=== PATIENT | male | born 1955 | race Two or more races ===

== ENCOUNTER 2019-03-16 05:15 | Day surgery (SDC) | payer OTHER ==
[~2019-03-16 05:15] MED LIST: ALLOPURINOL300 MG; ALLOPURINOL300 MG PO; BUMETANIDE1 MG PO; CARVEDILOL3.125 MG; COZAAR25 MG PO; ELIQUIS5 MG PO; ENALAPRIL MALEAT5 MG; FUROSEMIDE20 MG; LASIX40 MG PO; VOLTAREN100 GM; XARELTO10 MG
[2019-03-16] MEDS ORDERED: KEFLEX500 MG PO (09:43)
[2019-03-16] MEDS ORDERED: ULTRACET PO (09:43)
== END 2019-03-16 12:40 | disposition home or self-care (01) ==
LOC: CIR.AMB 05:15
DX: K42.0 Umbilical hernia with obstruction, without gangrene (principal)

== ENCOUNTER 2019-04-08 13:22 | Inpatient (IN) | payer OTHER ==
[~2019-04-08] VITALS: Ht 175.3 cm; Wt 113.4 kg
[~2019-04-08 13:22] MED LIST changes: +KEFLEX500 MG PO; +ULTRACET PO
[2019-04-12] MEDS ORDERED: ISOSORBIDE DINIT5 MG PO (12:08)
[2019-04-12] MEDS ORDERED: LOSARTAN POTASS25 MG PO (12:08)
[2019-04-12] MEDS ORDERED: CARVEDILOL6.25 MG PO (12:08)
[2019-04-12] MEDS ORDERED: ELIQUIS5 MG PO (12:08)
[2019-04-12] MEDS ORDERED: LASIX20 MG PO (12:09)
[2019-04-12] MEDS ORDERED: ZYLOPRIM300 MG PO (12:09)
[2019-04-12] MEDS ORDERED: SPIRONOLACTONE25 MG PO (12:09)
== END 2019-04-12 14:31 | disposition home or self-care (01) | DRG 293 ==
LOC: ER 13:22 → ICU-2 18:23 → SEC-K 04-10 13:19 → SURG 04-10 13:48
PROVIDERS: ADMIT Specialist
PROC: B246ZZZ Ultrasonography of Right and Left Heart (ICD-10-PCS; principal; 2019-04-08)
PROC: 4A12X4Z Monitoring of Cardiac Electrical Activity, External Approach (ICD-10-PCS; 2019-04-10)
DX: I11.0 Hypertensive heart disease with heart failure (principal); I50.43 Acute on chronic combined systolic (congestive) and diastolic (congestive) heart failure; I48.0 Paroxysmal atrial fibrillation; Z95.810 Presence of automatic (implantable) cardiac defibrillator

== ENCOUNTER 2020-11-29 10:51 | Emergency (ER) | payer OTHER ==
[~2020-11-29] VITALS: Ht 175.3 cm; Wt 90.3 kg
[~2020-11-29 10:51] MED LIST changes: +CARVEDILOL6.25 MG PO; +ISOSORBIDE DINIT5 MG PO; +LASIX20 MG PO; +LOSARTAN POTASS25 MG PO; +SPIRONOLACTONE25 MG PO; +ZYLOPRIM300 MG PO
[2020-11-29] MEDS ORDERED: CARVEDILOL12.5 MG (11:03)
[2020-11-29] MEDS ORDERED: DIGOXIN125 MCG PO (11:04)
[2020-11-29] MEDS ORDERED: INTESTINEX680 M1 PO (12:26)
[2020-11-29] MEDS ORDERED: AMOX-CLAV 875-1 EAC1 PO (12:26)
== END 2020-11-29 12:55 | disposition home or self-care (01) ==
LOC: ER 10:51
DX: S81.851A Open bite, right lower leg, initial encounter (principal); W54.0XXA Bitten by dog, initial encounter; Y93.89 Activity, other specified; Y92.89 Other specified places as the place of occurrence of the external cause; Y99.8 Other external cause status

== ENCOUNTER 2021-03-13 10:48 | Emergency (ER) | payer OTHER ==
[~2021-03-13] VITALS: Ht 175.3 cm; Wt 90.7 kg
[~2021-03-13 10:48] MED LIST changes: +AMOX-CLAV 875-1 EAC1 PO; +CARVEDILOL12.5 MG; +DIGOXIN125 MCG PO; +INTESTINEX680 M1 PO
[2021-03-13] MEDS ORDERED: LEVSIN0.125 MG PO (18:21)
== END 2021-03-13 20:02 | disposition home or self-care (01) ==
LOC: ER 10:48
DX: K40.90 Unilateral inguinal hernia, without obstruction or gangrene, not specified as recurrent (principal); N50.812 Left testicular pain

== ENCOUNTER 2021-04-10 06:08 | Day surgery (SDC) | payer OTHER ==
[~2021-04-10 06:08] MED LIST changes: +LEVSIN0.125 MG PO
[2021-04-10] MEDS ORDERED: SURFAK240 M1 PO (12:34)
[2021-04-10] MEDS ORDERED: ULTRACET PO (12:34)
[2021-04-10] MEDS ORDERED: LOVENOX30 MG/0.3 SUBCUTANEO (12:34)
== END 2021-04-10 16:35 | disposition home or self-care (01) ==
LOC: CIR.AMB 06:08
PROVIDERS: ATTEND Surgery
DX: K40.90 Unilateral inguinal hernia, without obstruction or gangrene, not specified as recurrent (principal); Z20.822 Contact with and (suspected) exposure to COVID-19

== ENCOUNTER 2024-04-26 17:28 | Emergency (ER) | payer OTHER ==
[~2024-04-26] VITALS: Ht 175.3 cm; Wt 99.8 kg
[~2024-04-26 17:28] MED LIST changes: +LOVENOX30 MG/0.3 SUBCUTANEO; +SURFAK240 M1 PO
[2024-04-26] MEDS ORDERED: FARXIGA10 MG PO (18:09)
[2024-04-26 20:42] LABS: HEMATOCRIT 39.2 % (39.0-48.0); MEAN CELL VOLUME 102.7 fL (80.0-100.00); MEAN CORPUSCULAR HGB CONC 33.1 g/dl (32.0-36.0); PLATELET COUNT 164 K/uL (150-450); RED BLOOD COUNT 3.82 M/uL (4.00-6.00); RED CELL DISTRIBUTION WIDTH 16.5 % (11.5-14.5)
[2024-04-26 23:31] LABS: ALBUMIN 3.8 gm/dL (3.4-5.0); BILIRUBIN TOTAL 1.4 mg/dL (0.3-1.2); CALCIUM 9.7 mg/dL (8.5-10.1); CREATININE SERUM 1.84 mg/dL (0.70-1.30); GFR 36.76; GLOBULINA 3.3 G/DL (2.4-3.5); POTASSIUM 5.41 mEq/L (3.5-5.1); TOTAL PROTEIN 7.1 gm/dL (6.4-8.2)
[2024-04-26 23:54] LABS: BILIRUBIN,CONJUGATED 0.54 mg/dL (0.0-0.2); BILIRUBIN,UNCONJUGATED 0.86 mg/dL (0.0-0.6)
== END 2024-04-27 02:25 | disposition home or self-care (01) ==
LOC: ER 17:30
PROVIDERS: Emergency Medicine; Preventive Medicine Public Health & General Preventive Medicine
DX: R53.81 Other malaise (principal); K21.9 Gastro-esophageal reflux disease without esophagitis; I10 Essential (primary) hypertension

== ENCOUNTER 2024-09-05 11:28 | Inpatient (IN) | payer OTHER ==
[~2024-09-05] VITALS: Ht 175.3 cm; Wt 113.4 kg
[~2024-09-05 11:28] MED LIST changes: +FARXIGA10 MG PO
--- NOTE | 2024-09-05 11:41 | NUR ---
SE RECIBE PACIENTE ALERTA Y ORIENTADO X3 REFIERE VENIR POR REFERIDO DE [facility]. PACIENTE CON HX DE RENAL DISSEASE, CHF
--- NOTE | 2024-09-05 11:44 | NUR ---
AL DARRYL LOS SIGNOS VITALES, PTE CON RESULTADO DE HIPOTENSION. SE DUARTE DE MANERA MANUAL 80/60MM/HG. SE NOTIFICA A Y SE UBICA A PACIENTE.
--- NOTE | 2024-09-05 12:06 | NUR ---
SE UBICA A PACIENET EN CAMA K6, SE CONECTA A TELEMETRIA. SE RE ESTIMAN PRESION ARTERIAL LA MISMA EN
--- NOTE | 2024-09-05 14:13 | NUR ---
SE ORIENTA A PTE SOBRE TX MEDICO Y EL MISMO REFIERE ENTENDER. SE CANALIZA A PTE EN BRAZO DERECHO CON ANGIO #20 Y SE RECOLECTAN MUESTRAS DE LA [place] ORDEN MEDICA BAJO MEDIDAS ASEPTICAS.
[2024-09-05 14:21] LABS: HEMATOCRIT 34.5 % (39.0-48.0); HEMOGLOBIN 11.4 g/dL (13-16.00); MEAN CORPUSCULAR HEMOGLOBIN 32.8 pg (27.00-32.0); MEAN CORPUSCULAR HGB CONC 33.1 g/dl (32.0-36.0); RED BLOOD COUNT 3.49 M/uL (4.00-6.00); RED CELL DISTRIBUTION WIDTH 17.4 % (11.5-14.5)
[2024-09-05 14:23] LABS: PLATELET COUNT 127 K/uL (150-450)
[2024-09-05 14:41] LABS: INR 1.24; PARTIAL THROMBOPLASTIN TIME 28.9 SECONDS (22.0-34.0); PROTHROMBIN TIME 13.3 SECONDS (9.0-11.5)
[2024-09-05 14:44] LABS: BILIRUBIN TOTAL 1.77 mg/dL (0.3-1.2); BILIRUBIN,CONJUGATED 0.91 mg/dL (0.0-0.2); BILIRUBIN,UNCONJUGATED 0.86 mg/dL (0.0-0.6); CREATININE SERUM 1.65 mg/dL (0.70-1.30); GFR 41.69; GLOBULINA 3.5 G/DL (2.4-3.5); POTASSIUM 4.09 mEq/L (3.5-5.1); TOTAL PROTEIN 6.5 gm/dL (6.4-8.2)
[2024-09-05 15:00] LABS: ABG PH 7.415 (7.35-7.45); ABG PO2 67.2 mmHg (80-100); ABG pCO2 54.8 mmHg (35-45); SaO2 93.8 %
[2024-09-05 15:01] LABS: BASE EXCESS 7.9 mmol/l; BICARBONATE 34.4 mmol/l (23-25); Tco2 36.1 mmol/l; allen test SATISFACTORY; o2 21 %; puncture site RADIAL RIGHT
[2024-09-05 16:47] LABS: PH,URINE 5.5 (5.0-8.0); URINE APPEARANCE Clear; URINE BILIRRUBIN Negative (NEGATIVE); URINE BLOOD Negative; URINE COLOR Dark Yellow; URINE KETONE Negative (NEGATIVE); URINE LEUKOCYTE Small; URINE NITRATE Negative; URINE PROTEIN Trace (NEGATIVE)
[2024-09-05 16:51] LABS: URINE BACTERIA 1064.8 uL (0.0-1933); URINE EPITHELIAL CELLS 7.7 uL (0.0-38.8); URINE WBC 14.4 uL (0.0-23.2)
[2024-09-05 17:08] LABS: URINE GLUCOSE 100 MG/DL (NEGATIVE); URINE RBC 1.7 uL (0.0-20.8)
[2024-09-05] MEDS ORDERED: RINGERS SOLUTION,LACTATED 1,000 ML IV ONE (18:30)
[2024-09-05] MEDS ORDERED: IPRATROPIUM BROMIDE 0.5 MG/2.5 ML AMPUL.NEB IH SCH (19:07)
[2024-09-05] MEDS ORDERED: FUROsemide 20 MG/2 ML VIAL IV SCH (19:14)
[2024-09-05] MEDS ORDERED: OxyCODONE HCL/APAP UD (PERCOCET) PO ONE (19:15)
[2024-09-05] MEDS ORDERED: ACETAMINOPHEN 500 MG GEL..CAP PO PRN (19:15)
[2024-09-05] MEDS ORDERED: METOLAZONE 5 MG TABLET PO SCH (20:23)
[2024-09-05] MEDS ORDERED: AMINO ACIDS/PROTEIN HYDROLYS 30 ML BLIST.PACK PO SCH (20:29)
[2024-09-05 20:38] VITALS: BP 101/65; O2SAT 96
[2024-09-05 23:14] VITALS: BP 98/74; O2SAT 100
[2024-09-06] VITALS (13 sets, daily range): BP systolic 84–102; BP diastolic 51–77; O2SAT 95–100
[2024-09-06] MEDS ORDERED: APIXABAN 5 MG TABLET PO SCH (05:00)
[2024-09-06 07:08] LABS: INR 1.18; PARTIAL THROMBOPLASTIN TIME 26.8 SECONDS (22.0-34.0); PROTHROMBIN TIME 12.7 SECONDS (9.0-11.5)
[2024-09-06] MEDS ORDERED: ATORVASTATIN CALCIUM 20 MG TABLET PO SCH (09:00)
[2024-09-06] MEDS ORDERED: FAMOTIDINE/PF 20 MG in 0.9 % SODIUM CHLORIDE 8 ML IV PUSH SCH (09:00)
[2024-09-06] MEDS ORDERED: ALLOPURINOL 300 MG TABLET PO SCH (09:00)
[2024-09-06 10:03] LABS: CALCIUM 8.6 mg/dL (8.5-10.1); CREATININE SERUM 1.54 mg/dL (0.70-1.30); GFR 45.15; PHOSPHOROUS 4.7 mg/dL (2.5-4.9); POTASSIUM 3.73 mEq/L (3.5-5.1)
[2024-09-06] MEDS ORDERED: MIDODRINE HCL 5 MG TABLET PO SCH (17:00)
[2024-09-06] MEDS ORDERED: SPIRONOLACTONE 25 MG TABLET PO SCH (17:15)
[2024-09-06] MEDS ORDERED: AMINO ACIDS 1 EACH TABLET PO SCH (19:14)
[2024-09-06] MEDS ORDERED: IRON FUM,PS/FOLIC/BCOMP,C NO.9 1 CAP CAPSULE PO SCH (19:15)
[2024-09-06] MEDS ORDERED: ALBUMIN HUMAN-25 0.25GM/ML (50ML) VIAL IV SCH (19:34)
[2024-09-06] MEDS ORDERED: FUROsemide 20 MG/2 ML VIAL IV SCH (21:00)
[2024-09-07] VITALS: BP 101/64; O2SAT 100
[2024-09-07 04:11] VITALS: BP 95/71; O2SAT 96
[2024-09-07 07:11] VITALS: BP 99/73; O2SAT 95
[2024-09-07 08:24] LABS: URINE PROT QUANT 24HR 15.9 MG/DL
[2024-09-07 08:25] LABS: URINE PROT QUANT 24 HR 461.1 MG/24HR (42-225)
[2024-09-07 08:28] LABS: CREATINE CLEARANCE 38.1 ML/MIN (97-137); CREATININE SERUM 1.42 mg/dL (0.8-1.3)
[2024-09-07] MEDS ORDERED: MIDODRINE HCL 5 MG TABLET PO SCH (09:00)
[2024-09-07] MEDS ORDERED: PANTOPRAZOLE SODIUM 40 MG TABLET.DR PO SCH (09:00)
[2024-09-07] MEDS ORDERED: ALLOPURINOL 100 MG TABLET PO SCH (09:00)
[2024-09-07] MEDS ORDERED: ALBUMIN HUMAN 100 ML VIAL IV SCH (13:00)
[2024-09-07] MEDS ORDERED: BUMETANIDE 2.5 MG/10 ML VIAL IV SCH (17:00)
[2024-09-07 18:29] VITALS: BP 120/86; O2SAT 100
[2024-09-07 20:30] LABS: TP PERITONEAL FLUID 3.5 g/dl
[2024-09-08] VITALS (9 sets, daily range): BP systolic 98–114; BP diastolic 67–78; O2SAT 95–100
[2024-09-08 06:17] LABS: HEMOGLOBIN 12.8 g/dL (13-16.00); MEAN CELL VOLUME 99.6 fL (80.0-100.00); MEAN CORPUSCULAR HEMOGLOBIN 33.7 pg (27.00-32.0); MEAN CORPUSCULAR HGB CONC 33.8 g/dl (32.0-36.0); PLATELET COUNT 161 K/uL (150-450); RED BLOOD COUNT 3.81 M/uL (4.00-6.00)
[2024-09-08 07:06] LABS: ALBUMIN 3.6 gm/dL (3.4-5.0); BILIRUBIN TOTAL 1.52 mg/dL (0.3-1.2); CALCIUM 9.5 mg/dL (8.5-10.1); CREATININE SERUM 1.47 mg/dL (0.70-1.30); GFR 47.64; GLOBULINA 3.5 G/DL (2.4-3.5); MAGNESIUM 2.3 mg/dL (1.8-2.4); POTASSIUM 4.14 mEq/L (3.5-5.1); TOTAL PROTEIN 7.1 gm/dL (6.4-8.2)
[2024-09-08] MEDS ORDERED: ACETAZOLAMIDE 250 MG TABLET PO NR (14:00)
[2024-09-08] MEDS ORDERED: APIXABAN 5 MG TABLET PO SCH (17:00)
[2024-09-09] VITALS (9 sets, daily range): BP systolic 98–140; BP diastolic 75–83; O2SAT 89–100
[2024-09-09 04:30] LABS: MEAN CELL VOLUME 99.4 fL (80.0-100.00); MEAN CORPUSCULAR HGB CONC 33.2 g/dl (32.0-36.0); PLATELET COUNT 147 K/uL (150-450); RED BLOOD COUNT 3.52 M/uL (4.00-6.00)
[2024-09-09 04:48] LABS: HEMOGLOBIN 11.6 g/dL (13-16.00); MEAN CORPUSCULAR HEMOGLOBIN 32.9 pg (27.00-32.0)
[2024-09-09 04:52] LABS: ALBUMIN 3.1 gm/dL (3.4-5.0); BILIRUBIN TOTAL 1.2 mg/dL (0.3-1.2); CALCIUM 8.9 mg/dL (8.5-10.1); GFR 47.27; MAGNESIUM 2.1 mg/dL (1.8-2.4); PHOSPHOROUS 3.1 mg/dL (2.5-4.9); POTASSIUM 3.28 mEq/L (3.5-5.1); TOTAL PROTEIN 6.1 gm/dL (6.4-8.2)
[2024-09-09 04:53] LABS: CREATININE SERUM 1.48 mg/dL (0.70-1.30)
[2024-09-09] MEDS ORDERED: POTASSIUM CHLORIDE 20MEQ/100ML H2O PB IV NR (11:00)
[2024-09-09] MEDS ORDERED: POTASSIUM BICARBONATE/CIT AC 25 MEQ TABLET.EFF PO NR (11:00)
[2024-09-09] MEDS ORDERED: ACETAZOLAMIDE 250 MG TABLET PO NR (14:45)
[2024-09-10] VITALS (8 sets, daily range): BP systolic 90–112; BP diastolic 65–81; O2SAT 90–100
[2024-09-10 06:13] LABS: HEMATOCRIT 39.1 % (39.0-48.0); HEMOGLOBIN 12.6 g/dL (13-16.00); MEAN CELL VOLUME 101.7 fL (80.0-100.00); MEAN CORPUSCULAR HEMOGLOBIN 32.7 pg (27.00-32.0); MEAN CORPUSCULAR HGB CONC 32.2 g/dl (32.0-36.0); PLATELET COUNT 151 K/uL (150-450); RED BLOOD COUNT 3.84 M/uL (4.00-6.00); RED CELL DISTRIBUTION WIDTH 17.1 % (11.5-14.5)
[2024-09-10 07:04] LABS: ALBUMIN 3.4 gm/dL (3.4-5.0); BILIRUBIN TOTAL 1.16 mg/dL (0.3-1.2); CALCIUM 9.6 mg/dL (8.5-10.1); CREATININE SERUM 1.29 mg/dL (0.70-1.30); GFR 55.39; GLOBULINA 3.2 G/DL (2.4-3.5); POTASSIUM 4.46 mEq/L (3.5-5.1); TOTAL PROTEIN 6.6 gm/dL (6.4-8.2)
[2024-09-10] MEDS ORDERED: BUMETANIDE 2.5 MG/10 ML VIAL IV SCH (09:00)
[2024-09-10] MEDS ORDERED: ACETAZOLAMIDE 250 MG TABLET PO NR (11:30)
[2024-09-10] MEDS ORDERED: ACETAZOLAMIDE 250 MG TABLET PO SCH ×2 (21:00)
[2024-09-11] VITALS (7 sets, daily range): BP systolic 91–96; BP diastolic 59–70; O2SAT 90–100
[2024-09-11 04:54] LABS: HEMATOCRIT 37.3 % (39.0-48.0); HEMOGLOBIN 12.4 g/dL (13-16.00); MEAN CELL VOLUME 99.4 fL (80.0-100.00); MEAN CORPUSCULAR HEMOGLOBIN 32.9 pg (27.00-32.0); MEAN CORPUSCULAR HGB CONC 33.1 g/dl (32.0-36.0); PLATELET COUNT 161 K/uL (150-450); RED BLOOD COUNT 3.76 M/uL (4.00-6.00)
[2024-09-11 05:10] LABS: ALBUMIN 3.1 gm/dL (3.4-5.0); BILIRUBIN TOTAL 1.2 mg/dL (0.3-1.2); CALCIUM 9.3 mg/dL (8.5-10.1); CREATININE SERUM 1.39 mg/dL (0.70-1.30); GFR 50.81; GLOBULINA 3.4 G/DL (2.4-3.5); MAGNESIUM 2.2 mg/dL (1.8-2.4); PHOSPHOROUS 3.7 mg/dL (2.5-4.9); POTASSIUM 4.26 mEq/L (3.5-5.1); TOTAL PROTEIN 6.5 gm/dL (6.4-8.2)
[2024-09-11] MEDS ORDERED: BUMETANIDE 0.5 MG TABLET PO SCH (09:00)
[2024-09-11] MEDS ORDERED: LOSARTAN POTASSIUM 25 MG TABLET PO SCH (09:00)
[2024-09-11] MEDS ORDERED: METOPROLOL TARTRATE 25 MG TABLET PO SCH (09:00)
[2024-09-11] MEDS ORDERED: ACETAZOLAMIDE 250 MG TABLET PO SCH (09:00)
[2024-09-11] MEDS ORDERED: MIDODRINE HCL 5 MG TABLET PO SCH ×2 (13:00)
[2024-09-12] VITALS (9 sets, daily range): BP systolic 84–101; BP diastolic 57–70; O2SAT 90–100
[2024-09-12 07:47] LABS: ALBUMIN 3.1 gm/dL (3.4-5.0); BILIRUBIN TOTAL 1.07 mg/dL (0.3-1.2); CALCIUM 9.2 mg/dL (8.5-10.1); CREATININE SERUM 1.67 mg/dL (0.70-1.30); GFR 41.12; GLOBULINA 3.1 G/DL (2.4-3.5); MAGNESIUM 2.2 mg/dL (1.8-2.4); PHOSPHOROUS 3.8 mg/dL (2.5-4.9); POTASSIUM 3.84 mEq/L (3.5-5.1); TOTAL PROTEIN 6.2 gm/dL (6.4-8.2)
[2024-09-12 08:06] LABS: HEMATOCRIT 35.9 % (39.0-48.0); HEMOGLOBIN 11.8 g/dL (13-16.00); MEAN CELL VOLUME 100.9 fL (80.0-100.00); MEAN CORPUSCULAR HGB CONC 32.7 g/dl (32.0-36.0); PLATELET COUNT 152 K/uL (150-450); RED BLOOD COUNT 3.56 M/uL (4.00-6.00); RED CELL DISTRIBUTION WIDTH 16.8 % (11.5-14.5)
[2024-09-13] VITALS (8 sets, daily range): BP systolic 102–118; BP diastolic 64–75; O2SAT 90–98
[2024-09-13 07:33] LABS: ALBUMIN 3.1 gm/dL (3.4-5.0); BILIRUBIN TOTAL 1.02 mg/dL (0.3-1.2); CALCIUM 9.1 mg/dL (8.5-10.1); CREATININE SERUM 1.61 mg/dL (0.70-1.30); GFR 42.89; GLOBULINA 3.4 G/DL (2.4-3.5); MAGNESIUM 2.3 mg/dL (1.8-2.4); PHOSPHOROUS 4.1 mg/dL (2.5-4.9); POTASSIUM 4.27 mEq/L (3.5-5.1); TOTAL PROTEIN 6.5 gm/dL (6.4-8.2)
[2024-09-13 07:45] LABS: HEMOGLOBIN 12.2 g/dL (13-16.00); MEAN CELL VOLUME 99.9 fL (80.0-100.00); PLATELET COUNT 167 K/uL (150-450); RED CELL DISTRIBUTION WIDTH 17.2 % (11.5-14.5)
[2024-09-13] MEDS ORDERED: METOPROLOL SUCCINATE 25 MG TAB.SR.24H PO SCH (09:00)
[2024-09-13] MEDS ORDERED: BUMETANIDE 0.5 MG TABLET PO SCH (09:00)
[2024-09-14] VITALS (9 sets, daily range): BP systolic 98–118; BP diastolic 62–80; O2SAT 92–100
[2024-09-14 06:46] LABS: ALBUMIN 3.3 gm/dL (3.4-5.0); BILIRUBIN TOTAL 1.06 mg/dL (0.3-1.2); CALCIUM 9.4 mg/dL (8.5-10.1); CREATININE SERUM 1.54 mg/dL (0.70-1.30); GFR 45.15; GLOBULINA 3.5 G/DL (2.4-3.5); POTASSIUM 4.04 mEq/L (3.5-5.1); TOTAL PROTEIN 6.8 gm/dL (6.4-8.2)
[2024-09-14 07:05] LABS: HEMATOCRIT 36.9 % (39.0-48.0); HEMOGLOBIN 12.4 g/dL (13-16.00); MEAN CELL VOLUME 99.9 fL (80.0-100.00); MEAN CORPUSCULAR HEMOGLOBIN 33.5 pg (27.00-32.0); MEAN CORPUSCULAR HGB CONC 33.5 g/dl (32.0-36.0); PLATELET COUNT 158 K/uL (150-450); RED BLOOD COUNT 3.69 M/uL (4.00-6.00); RED CELL DISTRIBUTION WIDTH 16.8 % (11.5-14.5)
[2024-09-14] MEDS ORDERED: MIDODRINE HCL 5 MG TABLET PO SCH (13:00)
[2024-09-15] VITALS (8 sets, daily range): BP systolic 100–113; BP diastolic 67–74; O2SAT 90–98
[2024-09-15 01:10] LABS: cortisol 24 hr 12 ug/24 hr (5-64); cortisol f 4 ug/L (Undefined)
[2024-09-15 04:53] LABS: HEMATOCRIT 35.9 % (39.0-48.0); HEMOGLOBIN 11.7 g/dL (13-16.00); MEAN CELL VOLUME 99.7 fL (80.0-100.00); MEAN CORPUSCULAR HEMOGLOBIN 32.4 pg (27.00-32.0); MEAN CORPUSCULAR HGB CONC 32.5 g/dl (32.0-36.0); PLATELET COUNT 145 K/uL (150-450)
[2024-09-15 05:13] LABS: ALBUMIN 3.1 gm/dL (3.4-5.0); BILIRUBIN TOTAL 0.97 mg/dL (0.3-1.2); CALCIUM 9.2 mg/dL (8.5-10.1); CREATININE SERUM 1.72 mg/dL (0.70-1.30); GFR 39.74; GLOBULINA 3.4 G/DL (2.4-3.5); MAGNESIUM 2.4 mg/dL (1.8-2.4); PHOSPHOROUS 3.6 mg/dL (2.5-4.9); POTASSIUM 3.95 mEq/L (3.5-5.1); TOTAL PROTEIN 6.5 gm/dL (6.4-8.2)
[2024-09-15] MEDS ORDERED: INTEGRA PLUS C1 EACH PO (12:39)
[2024-09-15] MEDS ORDERED: ELIQUIS5 MG PO (12:39)
[2024-09-15] MEDS ORDERED: MIDODRINE HCL5 MG PO (12:39)
[2024-09-15] MEDS ORDERED: LIPITOR20 MG PO (12:40)
[2024-09-15] MEDS ORDERED: PRE PROTEIN1 EACH PO (12:40)
[2024-09-15] MEDS ORDERED: LOSARTAN POTASS25 MG PO (12:40)
[2024-09-15] MEDS ORDERED: SPIRONOLACTONE25 MG PO (12:40)
[2024-09-15] MEDS ORDERED: TOPROL XL25 M1 PO (12:40)
[2024-09-15] MEDS ORDERED: ZYLOPRIM100 M1 PO (12:41)
[2024-09-15] MEDS ORDERED: BUMETANIDE0.5 MG PO (12:41)
[2024-09-15] MEDS ORDERED: PANTOPRAZOLE SO40 MG PO (12:41)
== END 2024-09-15 17:49 | disposition home or self-care (01) | DRG 432 ==
LOC: ER 11:29 → ICU-2 21:53 → MEDI 09-08 16:28
PROVIDERS: Emergency Medicine; Radiology Vascular & Interventional Radiology; Specialist/Technologist, Other Nephrology; ADMIT Internal Medicine; ATTEND Internal Medicine
PROC: BB24ZZZ Computerized Tomography (CT Scan) of Bilateral Lungs (ICD-10-PCS; principal; 2024-09-05)
PROC: BW21ZZZ Computerized Tomography (CT Scan) of Abdomen and Pelvis (ICD-10-PCS; 2024-09-05)
PROC: B54DZZZ Ultrasonography of Bilateral Lower Extremity Veins (ICD-10-PCS; 2024-09-05)
PROC: B44HZZZ Ultrasonography of Bilateral Lower Extremity Arteries (ICD-10-PCS; 2024-09-05)
PROC: B246ZZZ Ultrasonography of Right and Left Heart (ICD-10-PCS; 2024-09-06)
PROC: 3E0F7GC Introduction of Other Therapeutic Substance into Respiratory Tract, Via Natural or Artificial Opening (ICD-10-PCS; 2024-09-06)
PROC: 0W9G3ZZ Drainage of Peritoneal Cavity, Percutaneous Approach (ICD-10-PCS; 2024-09-07)
PROC: 4A12X4Z Monitoring of Cardiac Electrical Activity, External Approach (ICD-10-PCS; 2024-09-08)
DX: K74.69 Other cirrhosis of liver (principal); I50.43 Acute on chronic combined systolic (congestive) and diastolic (congestive) heart failure; N17.8 Other acute kidney failure; I11.0 Hypertensive heart disease with heart failure; R09.02 Hypoxemia; K76.89 Other specified diseases of liver; I95.89 Other hypotension; I12.9 Hypertensive chronic kidney disease with stage 1 through stage 4 chronic kidney disease, or unspecified chronic kidney disease; N18.9 Chronic kidney disease, unspecified; D64.9 Anemia, unspecified; I48.91 Unspecified atrial fibrillation; E88.09 Other disorders of plasma-protein metabolism, not elsewhere classified; D69.6 Thrombocytopenia, unspecified; I27.20 Pulmonary hypertension, unspecified